=== PATIENT | female | born 1990 | race African-American/Black ===

== ENCOUNTER 2019-04-13 13:16 | Emergency (ER) | payer BC, MEDICAID ==
[~2019-04-13] VITALS: Ht 157.5 cm; Wt 60.0 kg
[2019-04-13] MEDS ORDERED: DEXAMETHASONE 10 MG/ML VIAL IM ONE (14:30)
[2019-04-13 15:49] VITALS: BP 124/84
== END 2019-04-13 15:49 | disposition home or self-care (01) ==
LOC: ER 13:16
DX: J02.9 Acute pharyngitis, unspecified (principal)
CPT/HCPCS: 81025; 87070; 87430; 96372; 99283; J1100